=== PATIENT | female | born 1975 | race Caucasian/White ===

== ENCOUNTER 2017-12-24 09:57 | Emergency (ER) | payer OTHER ==
[~2017-12-24] VITALS: Ht 154.9 cm; Wt 60.3 kg
[~2017-12-24 09:57] MED LIST: ALDOMET500 MG PO; CEFADROXIL500 MG PO; LOTREL 10-20 MG1 CAP; LOTREL 5-10 MG1 CAP; METFORMIN HCL500 MG PO; NORVASC5 MG PO
[2017-12-24] MEDS ORDERED: XANAX XR0.5 MG PO (13:20)
== END 2017-12-24 13:56 | disposition home or self-care (01) ==
LOC: ER 09:57
DX: R00.2 Palpitations (principal); F06.4 Anxiety disorder due to known physiological condition